=== PATIENT | male | born 1995 | race Caucasian/White ===

== ENCOUNTER 2016-08-10 22:38 | Emergency (ER) | payer BC, OTHER ==
[2016-08-10 22:39] VITALS: TEMP 36.3; Ht 170.2 cm
[2016-08-10 23:44] LABS: BLOOD UREA NITROGEN 20 mg/dl (7-18); BUN/CREATININE RATIO 23.9 (10-20); CALCIUM 8.4 mg/dl (8.5-10.1); CARBON DIOXIDE 26 mmol/L (21-32); CHLORIDE 108 mmol/L (98-107); CREATININE 0.82 mg/dl (0.60-1.40); GLUCOSE 109 mg/dl (70-99); POTASSIUM 3.4 mmol/L (3.5-5.1); SODIUM 144 mmol/L (136-145)
--- NOTE | 2016-08-11 02:04 | EMERGENCY ROOM VISIT NOTE ---
History First contact with patient: 22:42 Chief Complaint: ALCOHOL OVERDOSE Stated Complaint: ALCOHOL OD Nursing Triage Summary: pt brought to triage by friends for alcohol overdose. friends report pt began drinking around 19:30. was drinking bacarid gold. friends state pt has never drank before. friends deny drug use. report they were concerned because "he went out on us" and was vomiting. upon arrival, pt lethargic, has vomit bucket. pt breathing regularly and independently. no signs of trauma noted. History of Present Illness The patient is a 21 year old male who presents to the Emergency Room brought by his friends for evaluation of an alcohol overdose. The patient's parents report that the patient began drinking approximately 3 hours ago. He has been drinking rum. They report the patient has not drank alcohol before. They deny any drug use. He reports that the patient has been vomiting and drowsy and they were concerned for his safety. They deny any trauma. Review of Systems A complete 10-point Review of Systems was discussed with the patient, with pertinent positives and negatives listed in the History of Present Illness. All remaining Review of Systems questions can be considered negative unless otherwise specified. Social History Smoking Status: Never Smoker Current/Historical Medications Unable to Obtain Active Prescriptions or Reported Meds Physical Exam Vital Signs Date Time Temp Pulse Resp B/P Pulse Ox O2 Delivery O2 Flow Rate FiO2 08/11/16 02:57 100 18 131/99 97 08/11/16 02:35 94 14 125/78 97 Room Air 08/11/16 01:03 77 14 109/66 94 Room Air 08/11/16 00:12 85 14 139/57 94 Room Air 08/10/16 23:13 79 14 100/61 96 Room Air 08/10/16 22:52 82 08/10/16 22:39 36.3 85 20 117/67 99 Room Air Physical Exam VITALS: Vitals are noted on the nurse's note and reviewed by myself. Vital signs stable. GENERAL: This is a 21-year-old male, visibly intoxicated, responds to verbal stimuli, nondiaphoretic, well-developed well-nourished. SKIN: The skin was without erythema, edema, or bruising. HEAD: Normocephalic atraumatic. EARS: External auditory canals clear, tympanic membranes pearly velasquez without erythema or effusion bilaterally. No hemotympanum. EYES: Pupils equal round and reactive to light and accommodation. Mild lateral nystagmus noted. MOUTH: Mucous membranes moist. No loose or chipped teeth. NECK: Supple without nuchal rigidity. Cervical spine is nontender. HEART: Regular rate and rhythm without murmurs gallops or rubs. LUNGS: Clear to auscultation bilaterally without wheezes, rales or rhonchi. MUSCULOSKELETAL: No deformities noted. No tenderness to palpation. NEURO: Patient is visibly intoxicated. Speech is slurred. Patient is pleasant and cooperative with examiner. Medical Decision & Procedures Laboratory Results 08/10/16 23:12 Test 08/10/16 23:12 Anion Gap 10.0 mmol/L (3-11) Estimated GFR () 147.5 Estimated GFR (Non- 127.3 BUN/Creatinine Ratio 23.9 (10-20) Calcium Level 8.4 mg/dl (8.5-10.1) Ethyl Alcohol mg/dL 174.0 mg/dl (0-3) Medical Decision Differential diagnosis includes alcohol intoxication, drug abuse, hypoglycemia, head trauma. Patient was evaluated as above. Labs were drawn. Alcohol was found to be 174. There is a mild hypokalemia likely secondary to alcohol use. No hypoglycemia. Kidney function is within normal limits. The patient was placed in the prone position and placed on the school bus monitor. He was reassessed frequently throughout his stay and had no complaints. When the patient had sobered up, his friends were contacted and arrived to take him home. The patient was discharged home in good condition. Impression Primary Impression: Alcoholic intoxication Departure Information Dispostion Home / Self-Care Condition GOOD Prescriptions Unable to Obtain Active Prescriptions or Reported Meds Referrals No Doctor, Assigned (PCP) Patient Instructions [facility]: [employer] Students and Alcohol Related Visits, [facility] Additional Instructions Do not drink anymore alcohol tonight. Rest and drink plenty of fluids. For pain control, you can use the following [id number] medicines (if >12 yo): - Regular strength (325mg/tab) Tylenol (acetaminophen) 2 tabs every 4-6 hours as needed. Do not exceed 12 tablets in a 24 hour period. Avoid taking more than 4 grams (4000 mg) of Tylenol per day. This includes any other sources of acetaminophen you may take on a regular basis. - Regular strength (200 mg/tab) Advil (ibuprofen) 1-2 tabs every 4-6 hours as needed. Do not exceed a dose of 3200 mg per day. Problem Qualifiers Primary Impression: Alcoholic intoxication Complication of substance-induced condition: uncomplicated Qualified Codes: F10.120 - Alcohol abuse with intoxication, uncomplicated
[2016-08-11 02:57] VITALS: BP 131/99; PULSE 100; O2SAT 97
== END 2016-08-11 02:57 | disposition home or self-care (01) ==
LOC: C.EDB 22:39 → C.EDA 08-11 02:57
DX: F10.129 Alcohol abuse with intoxication, unspecified (principal); Y90.6 Blood alcohol level of 120-199 mg/100 ml; E87.6 Hypokalemia